=== PATIENT | male | born 1945 | race Caucasian/White ===

== ENCOUNTER 2017-06-30 11:14 | Day surgery (SDC) | payer MEDICARE, OTHER ==
[2017-06-30] MEDS ORDERED: LACTATED RINGERS 1,000 ML IV ONE ×2 (11:25→13:21)
[2017-06-30] MEDS ORDERED: fentaNYL 100 MCG/2 ML VIAL IVP ONE (13:14)
[2017-06-30] MEDS ORDERED: MIDAZOLAM 2 MG/2 ML VIAL IVP ONE (13:14)
[2017-06-30] MEDS ORDERED: BENZOCAINE/TETRACAINE/BUTAMBEN SPRAY 56 GM TOP ONE (13:16)
[2017-06-30 14:10] VITALS: BP 108/64
== END 2017-06-30 11:15 | disposition home or self-care (01) ==
LOC: SDS 11:14
PROVIDERS: ATTEND Surgery
PROC: 0DB78ZX Excision of Stomach, Pylorus, Via Natural or Artificial Opening Endoscopic, Diagnostic (ICD-10-PCS; principal; 2017-06-30 12:45)
DX: K29.70 Gastritis, unspecified, without bleeding (principal); K20.9 Esophagitis, unspecified; I10 Essential (primary) hypertension; E78.5 Hyperlipidemia, unspecified
CPT/HCPCS: 43239; A9270; J7120

== ENCOUNTER 2017-08-14 08:00 | Outpatient (CLI) | payer MEDICARE, OTHER | END 2017-08-14 23:59 | disposition home or self-care (01) | LOC: LAB.R 08:00 | PROVIDERS: ATTEND Surgery | DX: K92.1 Melena (principal) | CPT/HCPCS: 82270 ==

== ENCOUNTER 2018-05-24 08:14 | Outpatient (CLI) | payer MEDICARE, OTHER ==
[2018-05-24 09:05] LABS: HB2 TOTAL 15.7 g/dL; HEMOGLOBIN A1C 0.64 g/dL; HEMOGLOBIN A1C % 5.9 % (4.6-6.2)
[2018-05-24 09:07] LABS: ALBUMIN 4.3 g/dL (3.2-5.5); ALBUMIN/GLOBULIN RATIO 1.7 (1.0-2.2); ALKALINE PHOSPHATASE 55 IU/L (42-121); ALT ALANINE AMINOTRANSFERASE 23 IU/L (10-60); AST ASPARTATE AMINOTRANSFERASE 20 IU/L (10-42); BILIRUBIN,TOTAL 1.3 mg/dL (0.2-1.0); BUN - BLOOD UREA NITROGEN 17 mg/dL (6-20); CARBON DIOXIDE - CO2 26 mmol/L (21-32); CHLORIDE 105 mmol/L (101-111); CHOL/HDL RATIO 2.3 (<5.0); CHOLESTEROL 116 mg/dL; CK- CREATINE KINASE 78 IU/L (22-269); GFR - MDRD 73 (>89); GLUCOSE 127 mg/dL (70-100); HDL CHOLESTEROL 51 mg/dL; LDL CHOLESTEROL,CALCULATED 45 mg/dL; LDL/HDL RATIO 0.9 (<3.6); SODIUM 140 mmol/L (135-145); TOTAL PROTEIN 6.9 g/dL (6.7-8.2); VLDL CHOLESTEROL 20 mg/dL
[2018-05-24 09:16] LABS: THYROID STIMULATING HORMONE 1.51 uIU/mL (0.34-5.60)
[2018-05-24 09:27] LABS: FOLATE 11.63 ng/mL (5.90 - >24.8)
== END 2018-05-24 08:15 | disposition home or self-care (01) ==
LOC: LAB 08:14
PROVIDERS: ATTEND Internal Medicine
DX: N40.0 Benign prostatic hyperplasia without lower urinary tract symptoms (principal); Z79.899 Other long term (current) drug therapy; G25.0 Essential tremor; R73.9 Hyperglycemia, unspecified; I25.10 Atherosclerotic heart disease of native coronary artery without angina pectoris; D75.89 Other specified diseases of blood and blood-forming organs
CPT/HCPCS: 36415; 80053; 80061; 82550; 82607; 82746; 83036; 83721; 84153; 84443

== ENCOUNTER 2018-06-07 15:06 | Outpatient (CLI) | payer MEDICARE, OTHER ==
[2018-06-07 15:51] LABS: BASOPHILS # (AUTO) 0.1 10^3/uL (0.0-0.1); BASOPHILS % (AUTO) 1.5 %; EOSINOPHILS # (AUTO) 0.3 10^3/uL (0.0-0.7); EOSINOPHILS % (AUTO) 5.6 %; HGB - HEMOGLOBIN 14.9 g/dL (14.0-18.0); LYMPHOCYTES # (AUTO) 1.4 10^3/uL (1.5-3.5); LYMPHOCYTES % (AUTO) 23.5 %; MEAN CORPUSCULAR HGB CONC 34.8 g/dL (32.0-36.0); MEAN CORPUSCULAR VOLUME 106.3 fL (80.0-94.0); MEAN PLATELET VOLUME 6.9 fL (7.4-11.4); MONOCYTES # (AUTO) 0.7 10^3/uL (0.0-1.0); MONOCYTES % (AUTO) 11.5 %; NEUTROPHILS # (AUTO) 3.5 10^3/uL (1.5-6.6); NEUTROPHILS % (AUTO) 57.9 %; PLT - PLATELET COUNT 131 10^3/uL (130-450); RED BLOOD COUNT 4.02 10^6/uL (4.70-6.10); RED CELL DISTRIBUTION WIDTH 14.7 % (12.0-15.0)
== END 2018-06-07 15:07 | disposition home or self-care (01) ==
LOC: LAB 15:06
PROVIDERS: ATTEND Internal Medicine
DX: I25.10 Atherosclerotic heart disease of native coronary artery without angina pectoris (principal); Z79.899 Other long term (current) drug therapy; N40.0 Benign prostatic hyperplasia without lower urinary tract symptoms; G25.0 Essential tremor; R73.9 Hyperglycemia, unspecified; D75.89 Other specified diseases of blood and blood-forming organs
CPT/HCPCS: 36415; 85025

== ENCOUNTER 2018-07-06 13:17 | Outpatient (CLI) | payer MEDICARE, OTHER ==
--- NOTE | 2018-07-06 17:14 | CARDIAC PROCEDURE NOTE ---
DATE OF SERVICE: 07/06/2018 Physician: Odilia Zee MD, [facility] INDICATIONS: Coronary artery disease. CORONARY RISK FACTORS: Male gender, hypertension, advanced age and, there is a known history of CAD with bypass surgery several months ago. The patient reports developing recurrence of his anginal symptoms since CABG, which is jaw pain. SUMMARY: After signing informed consent, the patient underwent a (symptom- limited) treadmill stress test. The patient also had nuclear myocardial perfusion imaging. RESTING HEART RATE: 68. PEAK HEART RATE: 108 (73% predicted maximum heart rate for age). RESTING BLOOD PRESSURE: 128/76. PEAK BLOOD PRESSURE: 170/50. The patient exercised for 4 minutes and 23 seconds on a Vasquez-protocol treadmill stress test. The patient developed his typical symptoms of bilateral jaw pain in stage II. The nuclear agent was then injected and the treadmill exercise was stopped before achieving target heart rate, since he developed his typical symptoms. The patient also developed moderate shortness of breath with pursed lip breathing. Oxygen saturation was 96% at peak on room air. The patient's jaw pain lasted for 9 minutes into recovery and spontaneously subsided. RESTING EKG: Normal sinus rhythm, first-degree block, right bundle branch block, LAFB, T-wave inversions in V1 through V3 and poor R-wave progression. EKG AT PEAK: [address] segment depressions in leads V2 and V3. These resolved slowly in recovery. SUMMARY: 1. Fair to poor exercise tolerance. 2. The patient did develop his typical anginal symptoms and exercise was stopped before achieving target heart rate. 3. Ischemic ST segments noted by EKG criteria. 4. Nuclear images reported separately. cc: Micheal Alba M.D. TD: 07/06/2018 16:56 [facility]
--- NOTE | 2018-07-07 09:58 | Nuclear Medicine Report ---
Reason: CAD Procedure Date: 07/06/2018 Accession Number: [id number] / [id number] Procedure: NM - Myocardial Perfusion STR/RST CPT Code: FULL RESULT: EXAM: SINGLE-ISOTOPE EXERCISE STRESS TEST. SINGLE-ISOTOPE AND ONE-DAY REST/STRESS MYOCARDIAL PERFUSION SCANS WITH TOMOGRAPHIC IMAGING, QUANTITATIVE ANALYSIS, WALL MOTION ANALYSIS AND CALCULATION OF EJECTION FRACTION. EXAM DATE: 07/06/2018 06:46 PM. CLINICAL HISTORY: Coronary artery disease. COMPARISON: None available.. TECHNIQUE: A rest myocardial perfusion scan was done with tomography after the intravenous administration of 10 mCi Tc-99m sestamibi. After an appropriate delay, a treadmill exercise stress was performed according to department protocol. The patient exercised for 4 minutes and 23 seconds. The maximum heart rate was 108 bpm, which was 73% of the maximum predicted heart rate of 147 bpm. At approximately peak heart rate, 41 mCi of Tc-99m sestamibi was injected for stress myocardial perfusion scan. Motion correction was applied when appropriate. Gated tomographic images were obtained for wall motion analysis and computation of left ventricular ejection fraction. FINDINGS: Images show a small, mild, fixed defect in the distal inferior wall and another in the distal apex. No convincing reversible perfusion defects. Computer analysis: Summed stress score 3 Summed rest score 2 Summed difference score 1 Wall motion analysis demonstrates septal hypokinesis. The left ventricular end-diastolic volume is 104 cc. The left ventricular end-systolic volume is 42 cc. The left ventricular ejection fraction is calculated to be 60%. IMPRESSION: 1. The patient failed to achieve adequate heart rate elevation for stress imaging which may decrease sensitivity of this exam. 2. There are small, mild, fixed defects in the distal inferior wall and distal septum. No convincing reversible perfusion defects. 4. Normal left ventricular ejection fraction of 60%. 4. Septal hypokinesis. 5. Normal left ventricular cavity size, no change with stress. 6. Based on computer analysis, normal study with no ischemia. RADIA
== END 2018-07-06 13:18 | disposition home or self-care (01) ==
LOC: DI 13:17
PROVIDERS: ATTEND Internal Medicine Cardiovascular Disease
DX: I25.119 Atherosclerotic heart disease of native coronary artery with unspecified angina pectoris (principal); I10 Essential (primary) hypertension; Z95.1 Presence of aortocoronary bypass graft
CPT/HCPCS: 78452; 93017; A9500

== ENCOUNTER 2019-07-22 11:28 | Outpatient (CLI) | payer MEDICARE, OTHER ==
--- NOTE | 2019-07-23 16:22 | XRAY Report ---
Reason: R HEEL PAIN Procedure Date: 07/22/2019 Accession Number: [id number] / [id number] Procedure: XR - Calcaneus RT CPT Code: Final Report FULL RESULT: EXAM: RIGHT CALCANEUS RADIOGRAPHY EXAM DATE: 07/22/2019 11:40 AM. CLINICAL HISTORY: R HEEL PAIN. COMPARISON: None. TECHNIQUE: 2 views. FINDINGS: Bones: Large Achilles and moderate size plantar calcaneal spurs. No fractures or bone lesions. Joints: Normal. No subluxations. Soft Tissues: Vascular calcification. No soft tissue swelling. IMPRESSION: 1. No acute abnormality. 2. Plantar and Achilles calcaneal spurs RADIA
== END 2019-07-22 11:29 | disposition home or self-care (01) ==
LOC: DI 11:28
PROVIDERS: ATTEND Internal Medicine
DX: M77.31 Calcaneal spur, right foot (principal)

== ENCOUNTER 2019-08-17 11:26 | Day surgery (SDC) | payer MEDICARE, OTHER ==
[2019-08-17] MEDS ORDERED: fentaNYL 250 MCG/5 ML VIAL IVP ONE (11:27)
[2019-08-17] MEDS ORDERED: MIDAZOLAM 2 MG/2 ML VIAL IVP ONE (11:27)
[2019-08-17] MEDS ORDERED: LACTATED RINGERS 1,000 ML IV ONE ×2 (11:30→13:10)
[2019-08-17 14:56] VITALS: BP 123/67
== END 2019-08-17 11:27 | disposition home or self-care (01) ==
LOC: SDS 11:26
PROVIDERS: ATTEND Surgery
PROC: 0DBL8ZZ Excision of Transverse Colon, Via Natural or Artificial Opening Endoscopic (ICD-10-PCS; 2019-08-17)
PROC: 0DBP8ZX Excision of Rectum, Via Natural or Artificial Opening Endoscopic, Diagnostic (ICD-10-PCS; principal; 2019-08-17 12:45)
DX: Z12.11 Encounter for screening for malignant neoplasm of colon (principal); K92.9 Disease of digestive system, unspecified; K62.7 Radiation proctitis; G62.9 Polyneuropathy, unspecified; I10 Essential (primary) hypertension; E78.5 Hyperlipidemia, unspecified; N40.0 Benign prostatic hyperplasia without lower urinary tract symptoms; Z87.891 Personal history of nicotine dependence; Z86.73 Personal history of transient ischemic attack (TIA), and cerebral infarction without residual deficits; Z95.1 Presence of aortocoronary bypass graft
CPT/HCPCS: 45380; J3010; J7120

== ENCOUNTER 2020-03-06 14:16 | Outpatient (CLI) | payer MEDICARE, OTHER | END 2020-03-06 14:17 | disposition home or self-care (01) | LOC: COV 14:16 | PROVIDERS: ATTEND Family Medicine | DX: R05 Cough (principal); M79.10 Myalgia, unspecified site; R53.83 Other fatigue; R68.83 Chills (without fever); J02.9 Acute pharyngitis, unspecified; R09.81 Nasal congestion; Z20.828 Contact with and (suspected) exposure to other viral communicable diseases ==

== ENCOUNTER 2021-04-05 08:51 | Outpatient (CLI) | payer MEDICARE, OTHER ==
[2021-04-05 09:05] LABS: BASOPHILS # (AUTO) 0.1 10^3/uL (0.0-0.1); BASOPHILS % (AUTO) 2.1 %; EOSINOPHILS # (AUTO) 0.9 10^3/uL (0.0-0.7); HCT - HEMATOCRIT 42.4 % (42.0-52.0); HGB - HEMOGLOBIN 14.9 g/dL (14.0-18.0); LYMPHOCYTES # (AUTO) 1.3 10^3/uL (1.5-3.5); LYMPHOCYTES % (AUTO) 21.1 %; MEAN CORPUSCULAR HEMOGLOBIN 37.8 pg (27.0-31.0); MEAN CORPUSCULAR HGB CONC 35.1 g/dL (32.0-36.0); MEAN CORPUSCULAR VOLUME 107.6 fL (80.0-94.0); MEAN PLATELET VOLUME 8.5 fL (7.4-11.4); MONOCYTES # (AUTO) 0.6 10^3/uL (0.0-1.0); NEUTROPHILS # (AUTO) 3.2 10^3/uL (1.5-6.6); NEUTROPHILS % (AUTO) 52.3 %; PLT - PLATELET COUNT 104 10^3/uL (130-450); RED BLOOD COUNT 3.94 10^6/uL (4.70-6.10); RED CELL DISTRIBUTION WIDTH 12.2 % (12.0-15.0); WHITE BLOOD COUNT 6.1 x10^3/uL (4.8-10.8)
[2021-04-05 09:27] LABS: ALBUMIN 4.4 g/dL (3.2-5.5); ALBUMIN/GLOBULIN RATIO 1.6 (1.0-2.2); ALKALINE PHOSPHATASE 48 IU/L (42-121); ALT ALANINE AMINOTRANSFERASE 21 IU/L (10-60); AST ASPARTATE AMINOTRANSFERASE 17 IU/L (10-42); BILIRUBIN,TOTAL 0.9 mg/dL (0.2-1.0); BUN - BLOOD UREA NITROGEN 20 mg/dL (6-20); CALCIUM 8.7 mg/dL (8.5-10.3); CARBON DIOXIDE - CO2 24 mmol/L (21-32); CHLORIDE 105 mmol/L (101-111); CHOLESTEROL 112 mg/dL; CK- CREATINE KINASE 66 IU/L (22-269); GFR - MDRD 73 (>89); GLUCOSE 119 mg/dL (70-100); HDL CHOLESTEROL 56 mg/dL; LDL CHOLESTEROL,CALCULATED 44 mg/dL; LDL/HDL RATIO 0.8 (<3.6); POTASSIUM 4.1 mmol/L (3.5-5.0); SODIUM 138 mmol/L (135-145); TOTAL PROTEIN 7.1 g/dL (6.7-8.2); TRIGLYCERIDES 58 mg/dL; VLDL CHOLESTEROL 12 mg/dL
[2021-04-05 09:38] LABS: THYROID STIMULATING HORMONE 2.62 uIU/mL (0.34-5.60)
[2021-04-05 10:02] LABS: PSA FREE 0.02 ng/mL (0.16-2.81)
[2021-04-05 10:03] LABS: PSA TOTAL 0.037 ng/mL (0.000-2.000)
[2021-04-05 13:12] LABS: ESTIMATED AVERAGE GLUCOSE 123 mg/dL (70-100); HEMOGLOBIN A1c% 5.9 % (4.27-6.07)
== END 2021-04-05 08:52 | disposition home or self-care (01) ==
LOC: LAB 08:51
PROVIDERS: ATTEND Internal Medicine
DX: N40.0 Benign prostatic hyperplasia without lower urinary tract symptoms (principal); I25.10 Atherosclerotic heart disease of native coronary artery without angina pectoris; Z79.899 Other long term (current) drug therapy; D75.89 Other specified diseases of blood and blood-forming organs; R73.9 Hyperglycemia, unspecified; G64 Other disorders of peripheral nervous system; F34.1 Dysthymic disorder
CPT/HCPCS: 36415; 80053; 80061; 82550; 82607; 83036; 83721; 84153; 84154; 84443; 85025

== ENCOUNTER 2022-02-26 09:19 | Outpatient (CLI) | payer MEDICARE, OTHER ==
[2022-02-26 09:49] LABS: CHOL/HDL RATIO 2.2 (<5.0); CHOLESTEROL 121 mg/dL; HDL CHOLESTEROL 54 mg/dL; LDL CHOLESTEROL,CALCULATED 53 mg/dL; TRIGLYCERIDES 71 mg/dL; VLDL CHOLESTEROL 14 mg/dL
== END 2022-02-26 09:20 | disposition home or self-care (01) ==
LOC: LAB 09:19
PROVIDERS: ATTEND Internal Medicine Cardiovascular Disease
DX: I25.119 Atherosclerotic heart disease of native coronary artery with unspecified angina pectoris (principal); Z95.1 Presence of aortocoronary bypass graft
CPT/HCPCS: 36415; 80061; 83721

== ENCOUNTER 2022-04-21 09:48 | Outpatient (CLI) | payer MEDICARE, OTHER ==
--- NOTE | 2022-04-21 11:28 | MRI Report ---
PROCEDURE: Brain W/O INDICATIONS: MEMORY LOSS, HISTORY OF FALLS TECHNIQUE: Noncontrast axial T1 spin echo, axial T2 fast spin echo, sagittal and axial FLAIR, coronal T2 fast sp in echo, axial gradient echo, axial diffusion and ADC through the brain. COMPARISON: None. FINDINGS: Image quality: Excellent. CSF Spaces: Basal cisterns are patent. No extra-axial fluid collections. Ventricles are normal in size and shape. Brain: No intracranial masses or hemorrhage. Solares/white matter interface is normal. Brainstem appe ars normal. Diffusion-weighted images demonstrate no acute ischemic insult. No chronic ischemic ins ults. Normal intravascular flow voids are present. Age-appropriate brain parenchymal volume loss an d chronic small vessel ischemic change can be seen. Skull and face: Calvarium has normal marrow signal. Orbits appear normal. Sinuses: Sinuses and mastoids are clear. IMPRESSION: Intracranial study within normal limits for age, with note made of brain parenchymal volume loss and chronic small vessel ischemic change. No findings of acute or subacute infarction are seen. Reviewed by: Addi Huff MD on 04/21/2022 10:26 AM MERARY Approved by: Addi Huff MD on 04/21/2022 10:26 AM MER[facility] Station ID: [id number]
== END 2022-04-21 09:49 | disposition home or self-care (01) ==
LOC: DI 09:48
PROVIDERS: ATTEND Psychiatry & Neurology Neurology
DX: R41.3 Other amnesia (principal); I67.82 Cerebral ischemia; Z86.16 Personal history of COVID-19; Z91.81 History of falling

== ENCOUNTER 2022-07-17 13:31 | Outpatient (CLI) | payer MEDICARE, OTHER ==
--- NOTE | 2022-07-17 17:20 | Ultrasound Report ---
PROCEDURE: Duplex Ext Veins Right INDICATIONS: Right leg edema TECHNIQUE: Real-time imaging, as well as color and pulse Doppler interrogation, were performed of the lower extr emity deep veins from the inguinal ligament to the popliteal fossa. COMPARISON: None. FINDINGS: The deep veins are normally compressible, and free of intraluminal thrombus. Color and pu lse Doppler demonstrate normal phasic intraluminal flow. There is normal augmentation response to di stal compression maneuver. IMPRESSION: No DVT in the right lower extremity. Reviewed by: Sherlyn Dudley MD on 07/17/2022 5:18 PM PST Approved by: Sherlyn Dudley MD on 07/17/2022 5:18 PM PST Station ID: [id number]
== END 2022-07-17 13:32 | disposition home or self-care (01) ==
LOC: DI 13:31
PROVIDERS: ATTEND Internal Medicine
DX: R60.0 Localized edema (principal)

== ENCOUNTER 2023-02-13 08:00 | Outpatient (CLI) | payer MEDICARE, OTHER ==
[2023-02-13 12:48] LABS: BILIRUBIN,URINE NEGATIVE (NEGATIVE); GLUCOSE, URINE (UA) NEGATIVE (NEGATIVE); KETONES,URINE (UA) NEGATIVE (NEGATIVE); LEUKOCYTE ESTERASE, URINE NEGATIVE (NEGATIVE); NITRITE,URINE NEGATIVE (NEGATIVE); OCCULT BLOOD,URINE NEGATIVE (NEGATIVE); PH,URINE 5.5 PH (5.0-7.5); PROTEIN,URINE NEGATIVE (NEGATIVE); UROBILINOGEN,URINE 0.2 (NORMAL) E.U./dL (NORMAL)
[2023-02-13 12:59] LABS: BACTERIA,URINE None Seen /HPF (None Seen); CLARITY,URINE CLEAR (CLEAR); RBC,URINE None Seen /HPF (0-5); SQUAMOUS EPITHELIAL CELL,UR RARE Squamous (<= Few); WBC,URINE 0-3 /HPF (0-3)
== END 2023-02-13 23:59 | disposition home or self-care (01) ==
LOC: LAB 08:00
PROVIDERS: ATTEND Urology
DX: N40.1 Benign prostatic hyperplasia with lower urinary tract symptoms (principal); N52.9 Male erectile dysfunction, unspecified
CPT/HCPCS: 36415; 81001; 84402; 84403; 87086

== ENCOUNTER 2023-02-13 09:07 | Outpatient (CLI) | payer MEDICARE, OTHER ==
[2023-02-14 23:07] LABS: FREE TESTOSTERONE(DIRECT) 8.8 pg/mL (6.6-18.1)
== END 2023-02-13 09:08 | disposition home or self-care (01) ==
LOC: LAB 09:07
PROVIDERS: ATTEND Urology
DX: N52.9 Male erectile dysfunction, unspecified (principal)
CPT/HCPCS: 36415; 84402; 84403

== ENCOUNTER 2023-08-18 15:31 | Outpatient (CLI) | payer MEDICARE, OTHER ==
[2023-08-18 16:08] LABS: ALBUMIN 4.3 g/dL (3.2-5.5); BILIRUBIN,DIRECT 0.15 mg/dL (0.03-0.18); BILIRUBIN,TOTAL 0.6 mg/dL (0.2-1.0); TOTAL PROTEIN 6.7 g/dL (6.4-8.9)
== END 2023-08-18 15:32 | disposition home or self-care (01) ==
LOC: LAB 15:31
PROVIDERS: ATTEND Physician Assistant Medical
DX: B35.1 Tinea unguium (principal)
CPT/HCPCS: 36415; 80076; 82565; 84520

== ENCOUNTER 2023-12-18 12:01 | Outpatient (CLI) | payer MEDICARE, OTHER ==
--- NOTE | 2023-12-18 12:31 | XRAY Report ---
PROCEDURE: Chest 2V INDICATIONS: COUGH, WHEEZING TECHNIQUE: 2 views of the chest were acquired. COMPARISON: None. FINDINGS: Surgical changes and devices: Sternotomy wires. Mediastinal clips Lungs and pleura: No dense consolidation or pleural effusion. There is a questionable right lower lung 1 cm nodule. Mediastinum: Normal heart size Bones and chest wall: Degenerative changes IMPRESSION: No acute radiographic abnormality. Questionable right lower lung 1 cm nodule versus nipple shadow, consider radiographic or CT follow-up . Reviewed by: Milo Elliott MD on 12/18/2023 12:30 PM PDT Approved by: Milo Elliott MD on 12/18/2023 12:30 PM PDT Station ID: [id number]
== END 2023-12-18 12:02 | disposition home or self-care (01) ==
LOC: DI 12:01
PROVIDERS: ATTEND Internal Medicine
DX: R05.1 Acute cough (principal); R06.2 Wheezing

== ENCOUNTER 2023-12-24 18:52 | Emergency (ER) | payer MEDICARE, OTHER ==
--- NOTE | 2023-12-24 19:47 | ED Physician Documentation ---
PD HPI BACK PAIN - Stated complaint Stated Complaint: BACK PX - Chief complaint Chief Complaint: Back Pain - Additional information Additional information: 78-year-old male presents emergency department for lower back pain. Patient says that he is unsure what causes he has had no injuries but recently got a new couch and maybe there is not as much lumbar support as he should normally have. He has had some recent unintentional weight loss of about 3 pounds. Pain is mostly his left lower back and radiates to the front psoas region. No nausea vomiting no history of back surgeries no recent fevers or chills. No incontinence of bowel or bladder PD PAST MEDICAL HISTORY - Past Medical History Cardiovascular: None Respiratory: None Endocrine/Autoimmune: None GI: Colon polyps, Other : Benign prostate hypertrophy HEENT: Chronic vision loss Psych: Depression Musculoskeletal: Osteoarthritis Derm: None - Past Surgical History General: Colonoscopy Ortho: Arthroscopic surgery Cardiovascular: Other HEENT: Tonsil/Adenoidectomy - Present Medications Home Medications: Ambulatory Orders Medication Instructions Recorded Confirmed Finasteride 5 mg ORAL DAILY 07/31/14 12/24/23 Tamsulosin HCl [Flomax] 0.4 mg ORAL DAILY 07/31/14 12/24/23 Atorvastatin [Lipitor] 40 mg PO DAILY 08/16/19 12/24/23 Acetaminophen 1,000 mg PO DAILY 08/17/19 12/24/23 carvediloL [Carvedilol] 3.125 mg PO BID 08/17/19 12/24/23 Cyclobenzaprine [Flexeril] 10 mg PO TID PRN 6 Days #20 tablet 12/24/23 Gabapentin [Neurontin] 300 mg PO QPM 12/24/23 12/24/23 Terbinafine [Lamisil] 250 mg PO DAILY 12/24/23 12/24/23 oxyCODONE [Roxicodone] 5 mg PO Q4-6H #10 tablet 12/24/23 - Allergies Allergies/Adverse Reactions: Allergies Allergy/AdvReac Type Severity Reaction Status Date / Time No Known Drug Allergies Allergy Verified 12/24/23 19:32 PD ED PE NORMAL - Vitals Vital signs reviewed: Yes - General General: Alert and oriented X 3, No acute distress, Well developed/nourished - Free text exam Free text exam: Neck and back are without deformity, external skin changes, or signs of trauma. Curvature of the cervical, thoracic, and lumbar spine are within normal limits. Bony features of the shoulders and hips are of equal height bilaterally. Posture is upright, gait is slow with small steps due to pain, no weakness. No tenderness noted on palpation of the spinous processes. Spinous processes are midline. lumbar paraspinal muscles are tender but without spasm. discomfort is noted with flexion, extension, and rwer-ql-istw rotation of the lumbar spine, with limited range of motion is noted. Straight leg raise test is positive on left side. Sensation to the upper and lower extremities is normal bilaterally. No clonus is noted. Beveler strength is normal bilaterally. Dorsi/plantar flexion is normal bilaterally. Results - Vitals Vitals: Vital Signs - 24 hr 12/24/23 12/24/23 12/24/23 19:27 20:50 21:13 Temperature 36.2 C L 36.2 C L Heart Rate 63 60 55 L Respiratory 17 16 16 Rate Blood Pressure 161/68 H 154/77 H 133/78 H O2 Saturation 99 97 96 12/24/23 12/24/23 12/24/23 21:52 22:24 22:28 Temperature 36.2 C L 36.4 C L Heart Rate 51 L 54 L Respiratory 16 14 Rate Blood Pressure 162/71 H 161/74 H O2 Saturation 96 98 Oxygen O2 Source Room air - Rads (name of study) CT lumbar without con Relevant Findings:: Final report received, EMP independent interpretation of test, Other PD Medical Decision Making - ED course ED course: This patient presents with back pain most consistent with lumbago. Differential diagnoses includes lumbago versus musculoskeletal spasm / strain versus sciatica. I do believe there is a component of sciatica here as straight leg raise positive on the right side. Patient says that he has a history of sciatica on the left side and this does feel different. No back pain red flags on history or physical. Presentation not consistent with malignancy (lack of history of malignancy, lack of B symptoms), fracture (no trauma, no bony tenderness to palpation), cauda equina (no bowel or urinary incontinence/retention, no saddle anesthesia, no distal weakness), AAA, viscus perforation, osteomyelitis or epidural abscess (no IVDU, vertebral tenderness), renal colic, pyelonephritis (afebrile, no CVAT, no urinary symptoms). I went ahead and did a CT lumbar for further evaluation of patient's severe lower back pain and it does appear that patient has degenerative disc disease. While patient was here we are able to get more control of his pain with Tylenol, Flexeril, Dilaudid, Toradol, lidocaine patch, oxycodone. He was given a take- home pack of oxycodone. I am prescribing a short course of short-acting opioid pain medication for this patient. 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 I have discussed that the opioids are for short term therapy only, and will not be refilled from the ED. Patient is able to ambulate with little more freedom after these medications prescription sent to his preferred pharmacy of oxycodone and Flexeril. Patient will call primary care provider soon as possible and strict ER return precautions have been given. Is also given referral to [facility] for further evaluation of this. Departure - Departure Disposition: 01 Home, Self Care Clinical Impression: Degenerative disc disease, Lumbago Instructions: ED Back Care Tips, ED Spasm Back No Trauma Follow-Up: [facility] [Provider Group] Prescriptions: Cyclobenzaprine [Flexeril] 10 mg PO TID PRN 6 Days #20 tablet PRN Reason: Spasms oxyCODONE [Roxicodone] 5 mg PO Q4-6H #10 tablet Comments: CT has been completed in the emergency department and reveals degenerative disc disease. We have given you a muscle relaxer called Flexeril, Tylenol, oxycodone, Toradol here in the emergency department to help with your pain. We are sending you home with a take-home pack of Percocet which is a combination medication of oxycodone and Tylenol. You can take 1 of these pills every 6-8 hours as needed. I recommend following up with your primary care provider for further evaluation of your lower back pain and let them know about today's ER visit. I have also included a follow-up contact information for [facility] that I would recommend following up with as well. Going home you can take 1000 mg of Tylenol every 8 hours and Flexeril up to 3 times a day as needed for pain. If both of these medications have been taken and you are still experiencing no relief then you can take 5 mg of oxycodone every 6-8 hours. I am prescribing a short course of narcotic pain medication for you. These are potentially dangerous and addictive medications that should be used carefully. These medications may constipate you. Take an dvid-dih-ekassws stool softener (docusate) twice daily with plenty of water while taking these medications. If you go 24 hours without a bowel movement, take glgw-umc-mtkcozm miralax, per package instructions. Do not drink or drive while taking these medications. If you received narcotic or sedating medications while in the emergency department, do not drive for 24 hours. Store this medication in a safe, secure place and out of reach of children. It is a violation of federal law to give or sell this medication to another person or to use in a manner other than prescribed. The ED will not refill narcotic prescriptions, including prescriptions lost or stolen. To dispose of unwanted medications: 1. [facility] [address] in [place] has a medication drop box. They accept prescription medications (in pill form) Thursday through Thursday 9:00 a.m. to 5:00 p.m. 2. [facility] accepts prescription medications (in pill form only) for disposal year round. Call for more information. 3. Contact the [facility] for the next [facility] sponsored prescription drug collection event. , [phone], or [phone]; Note that many narcotic pain relievers also contain Tylenol/acetaminophen. Please ensure that your total dose of acetaminophen from all sources does not exceed 3 g (3000 mg) per day. EXAM: [id number] CT/LSPWO (88297) PROCEDURE: Lumbar Spine WO INDICATIONS: severe lumbar pain TECHNIQUE: Noncontrast 3 mm thick sections acquired from the T12 level to the sacrum. Sagittal and coronal reformats were constructed. For radiation dose reduction, the following was used: automated exposure control, adjustment of mA and/or kV according to patient size. COMPARISON: None. FINDINGS: Image quality: Excellent. Bones: There is normal bony alignment. No acute vertebral body compression fractures. No suspicious lytic or blastic bony lesions. Central spinal caliber is of normal overall caliber. No pars defects. Disc space height loss most pronounced at L3-L4 and L4-L5. Small vertebral body osteophytes. Mild Schmorl's nodes. Broad-based disc bulge at L3-L4 L4-L5 and L5- S1. Mild central canal narrowing appreciated. Soft tissues: No retroperitoneal masses or hematomas. Visualized aorta is normal in caliber. Calcific granuloma in the spleen. Normal appendix. Diverticulosis. IMPRESSION: Moderate DDD and degenerative changes. No compression fracture. Reviewed by: Mikael Nguyen MD on 12/24/2023 8:55 PM PDT Approved by: Mikael Nguyen MD on 12/24/2023 8:55 PM PDT Station ID: [id number] Discharge Date/Time: 12/24/23 22:47
[2023-12-24] MEDS: CYCLOBENZAPRINE 10 MG TABLET PO STA (20:40)
[2023-12-24] MEDS: HYDROmorphone 0.5 MG/0.5 ML SYRINGE IM STA (20:43)
[2023-12-24] MEDS: KETOROLAC 30 MG/ML VIAL IM STA (20:44)
[2023-12-24] MEDS: LIDOCAINE PATCH 5% TOP STA (20:46)
--- NOTE | 2023-12-24 20:56 | CT Report ---
PROCEDURE: Lumbar Spine WO INDICATIONS: severe lumbar pain TECHNIQUE: Noncontrast 3 mm thick sections acquired from the T12 level to the sacrum. Sagittal and coronal refo rmats were constructed. For radiation dose reduction, the following was used: automated exposure co ntrol, adjustment of mA and/or kV according to patient size. COMPARISON: None. FINDINGS: Image quality: Excellent. Bones: There is normal bony alignment. No acute vertebral body compression fractures. No suspiciou s lytic or blastic bony lesions. Central spinal caliber is of normal overall caliber. No pars defec ts. Disc space height loss most pronounced at L3-L4 and L4-L5. Small vertebral body osteophytes. Mild Schmorl's nodes. Broad-based disc bulge at L3-L4 L4-L5 and L5-S1. Mild central canal narrowing appre ciated. Soft tissues: No retroperitoneal masses or hematomas. Visualized aorta is normal in caliber. Calci fic granuloma in the spleen. Normal appendix. Diverticulosis. IMPRESSION: Moderate DDD and degenerative changes. No compression fracture. Reviewed by: Mikael Nguyen MD on 12/24/2023 8:55 PM PDT Approved by: Mikael Nguyen MD on 12/24/2023 8:55 PM PDT Station ID: [id number]
[2023-12-24] MEDS: ACETAMINOPHEN 325 MG TABLET PO STA (21:58)
[2023-12-24] MEDS: oxyCODONE 5 MG TABLET PO STA (21:59)
[2023-12-24 22:30] VITALS: BP 161/74; O2SAT 98
[2023-12-24] MEDS: oxyCODONE/ACET 5/325 Prepack 4 PO STA (22:41)
== END 2023-12-24 22:47 | disposition home or self-care (01) ==
LOC: ED 18:52
DX: M51.36 Other intervertebral disc degeneration, lumbar region (principal); N40.0 Benign prostatic hyperplasia without lower urinary tract symptoms; Z86.010 Personal history of colon polyps; Z79.899 Other long term (current) drug therapy
CPT/HCPCS: 72131; 96372; 99284; A9270; J1170

== ENCOUNTER 2024-02-26 10:30 | Emergency (ER) | payer MEDICARE, OTHER ==
[2024-02-26 11:15] VITALS: O2SAT 100
[2024-02-26 11:28] LABS: BASOPHILS # (AUTO) 0.1 10^3/uL (0.0-0.1); BASOPHILS % (AUTO) 2.1 %; EOSINOPHILS # (AUTO) 0.4 10^3/uL (0.0-0.7); EOSINOPHILS % (AUTO) 6.5 %; HCT - HEMATOCRIT 40.4 % (42.0-52.0); HGB - HEMOGLOBIN 13.6 g/dL (14.0-18.0); LYMPHOCYTES # (AUTO) 1.3 10^3/uL (1.5-3.5); LYMPHOCYTES % (AUTO) 23.4 %; MEAN CORPUSCULAR HEMOGLOBIN 36.6 pg (27.0-31.0); MEAN CORPUSCULAR HGB CONC 33.7 g/dL (32.0-36.0); MEAN CORPUSCULAR VOLUME 108.6 fL (80.0-94.0); MEAN PLATELET VOLUME 9.3 fL (7.4-11.4); MONOCYTES # (AUTO) 0.6 10^3/uL (0.0-1.0); MONOCYTES % (AUTO) 10.9 %; NEUTROPHILS # (AUTO) 3.2 10^3/uL (1.5-6.6); NEUTROPHILS % (AUTO) 56.6 %; PLT - PLATELET COUNT 121 10^3/uL (130-450); RED BLOOD COUNT 3.72 10^6/uL (4.70-6.10); RED CELL DISTRIBUTION WIDTH 13.4 % (12.0-15.0); WHITE BLOOD COUNT 5.7 x10^3/uL (4.8-10.8)
--- NOTE | 2024-02-26 11:42 | XRAY Report ---
PROCEDURE: Chest 1V INDICATIONS: Chest pain TECHNIQUE: One view of the chest was acquired. COMPARISON: 12/18/2023. FINDINGS: Surgical changes and devices: Remote CABG. Lungs and pleura: No pleural effusions or pneumothorax. Lungs are clear. Mediastinum: Mediastinal contours appear normal. Mild cardiomegaly Bones and chest wall: No suspicious bony lesions. Overlying soft tissues appear unremarkable. IMPRESSION: Mild cardiomegaly. No acute pulmonary process. Reviewed by: Fernando Medrano MD on 02/26/2024 11:41 AM PDT Approved by: Fernando Medrano MD on 02/26/2024 11:41 AM PDT Station ID: [id number]
[2024-02-26 11:45] LABS: ALBUMIN 4.1 g/dL (3.2-5.5); ALBUMIN/GLOBULIN RATIO 1.6 (1.0-2.2); BILIRUBIN,TOTAL 0.7 mg/dL (0.2-1.0); CALCIUM 9.3 mg/dL (8.5-10.3); POTASSIUM 4.5 mmol/L (3.5-4.5); TOTAL PROTEIN 6.7 g/dL (6.4-8.9)
[2024-02-26 11:48] LABS: TROPONIN I HIGH SENSITIVITY 7.5 ng/L (2.3-19.7)
--- NOTE | 2024-02-26 12:01 | ED Physician Documentation ---
History of Present Illness - Stated complaint Stated Complaint: FEELING FAINT - Chief complaint Chief Complaint: Cardiac - History obtained from History obtained from: Patient - Additonal information Additional information: He has a history of four-vessel bypass about 5 years ago. He was in his usual state of health and went out to walk his dog today and developed severe presyncope. He had to stop and put his head between his legs several times to keep from passing out. There is no chest pain with it but he says he felt like he had to burp. No shortness of breath, leg swelling, leg pain, fevers or chills. He was in his usual state of health prior to this. PD PAST MEDICAL HISTORY - Past Medical History Cardiovascular: None Respiratory: None Endocrine/Autoimmune: None GI: Colon polyps, Other : Benign prostate hypertrophy HEENT: Chronic vision loss Psych: Depression Musculoskeletal: Osteoarthritis Derm: None - Past Surgical History Past Surgical History: Yes General: Colonoscopy Ortho: Arthroscopic surgery Cardiovascular: Other HEENT: Tonsil/Adenoidectomy - Present Medications Home Medications: Ambulatory Orders Medication Instructions Recorded Confirmed Finasteride 5 mg ORAL DAILY 07/31/14 12/24/23 Tamsulosin HCl [Flomax] 0.4 mg ORAL DAILY 07/31/14 12/24/23 Atorvastatin [Lipitor] 40 mg PO DAILY 08/16/19 12/24/23 Acetaminophen 1,000 mg PO DAILY 08/17/19 12/24/23 carvediloL [Carvedilol] 3.125 mg PO BID 08/17/19 12/24/23 Cyclobenzaprine [Flexeril] 10 mg PO TID PRN 6 Days #20 tablet 12/24/23 Gabapentin [Neurontin] 300 mg PO QPM 12/24/23 12/24/23 Terbinafine [Lamisil] 250 mg PO DAILY 12/24/23 12/24/23 oxyCODONE [Roxicodone] 5 mg PO Q4-6H #10 tablet 12/24/23 - Allergies Allergies/Adverse Reactions: Allergies Allergy/AdvReac Type Severity Reaction Status Date / Time No Known Drug Allergies Allergy Verified 02/26/24 10:58 - Social History Does the pt smoke?: No Smoking Status: Never smoker Does the pt drink ETOH?: Yes Does the pt have substance abuse?: No - POLST Patient has POLST: No PD ED PE NORMAL - Vitals Vital signs reviewed: Yes - General General: Alert and oriented X 3, No acute distress - HEENT HEENT: Pharynx benign - Neck Neck: Supple, no meningeal sign - Cardiac Cardiac: RRR, No murmur - Respiratory Respiratory: No respiratory distress, Clear bilaterally - Abdomen Abdomen: Non tender - Back Back: No CVA TTP, No spinal TTP - Extremities Extremities: No edema, No calf tenderness / cord - Neuro Neuro: Alert and oriented X 3 Eye Opening: Spontaneous Motor: Obeys Commands Verbal: Oriented GCS Score: 15 Results - Vitals Vitals: Vital Signs - 24 hr 02/26/24 10:58 Temperature 36.5 C Heart Rate 62 Respiratory 22 Rate Blood Pressure 117/85 H O2 Saturation 100 Oxygen O2 Source Room air - EKG (time done) 1101 EKG releavant findings:: EKG personally interpreted by author of this note. Relevant findings are: Rate: Rate (enter#) (60) Rhythm: NSR Intervals: Prolonged CT, Other (IVCD) Ischemia: Normal ST segments - Labs Labs: Laboratory Tests 02/26/24 02/26/24 11:18 11:18 WBC 5.7 RBC 3.72 L Hgb 13.6 L Hct 40.4 L MCV 108.6 H MCH 36.6 H MCHC 33.7 RDW 13.4 Plt Count 121 L MPV 9.3 Neut # (Auto) 3.2 Lymph # (Auto) 1.3 L Cross # (Auto) 0.6 Eos # (Auto) 0.4 Baso # (Auto) 0.1 Absolute Nucleated RBC 0.00 Nucleated RBC % 0.0 Sodium 138 Potassium 4.5 Chloride 107 Carbon Dioxide 26 Anion Gap 5.0 L BUN 19 Creatinine 1.0 Estimated GFR (MDRD) 72 L Glucose 96 Calcium 9.3 Total Bilirubin 0.7 AST 14 ALT 16 Alkaline Phosphatase 43 Troponin I High Sens 7.5 Total Protein 6.7 Albumin 4.1 Globulin 2.6 Albumin/Globulin Ratio 1.6 Lipase 20 PD Medical Decision Making - ED course ED course: 79-year-old gentleman presents with orthostatic presyncope. Workup in the emergency department demonstrates an nonischemic EKG, very mild macrocytic anemia on CBC, unremarkable CMP and negative/normal troponin. After some oral and IV fluids he was felt much better and ambulated without recurrent dizziness. Departure - Departure Disposition: Home, Self Care Clinical Impression: Orthostasis Condition: Good Record reviewed to determine appropriate education?: Yes Instructions: ED Hypotension Orthostatic Comments: You were seen today for what we call orthostasis, the feeling of passing out when you stand up. After some IV fluids and oral fluids you are feeling better and the sensation passed. No significant diagnostic abnormalities were identified on lab work or EKG. Call your doctor to arrange a follow-up appointment, make the next available appointment. In the interim, return anytime if worse or if new symptoms develop. Forms: PCP List
[2024-02-26] MEDS: SODIUM CHLORIDE 0.9% 1,000 ML IV STA (12:07)
[2024-02-26 13:29] VITALS: BP 166/90
== END 2024-02-26 13:25 | disposition home or self-care (01) ==
LOC: ED 10:30
DX: I95.1 Orthostatic hypotension (principal); N40.0 Benign prostatic hyperplasia without lower urinary tract symptoms; Z86.010 Personal history of colon polyps; Z79.899 Other long term (current) drug therapy
CPT/HCPCS: 36415; 80053; 83690; 84484; 85025; 93005; 99283; 99284

== ENCOUNTER 2024-03-30 07:55 | Outpatient (CLI) | payer MEDICARE, OTHER | END 2024-03-30 07:56 | disposition home or self-care (01) | LOC: DI 07:55 | PROVIDERS: ATTEND Internal Medicine | DX: R55 Syncope and collapse (principal); R42 Dizziness and giddiness; I51.7 Cardiomegaly; I77.810 Thoracic aortic ectasia; I87.8 Other specified disorders of veins | CPT/HCPCS: 93307 ==